=== PATIENT | female | born 1985 | race Caucasian/White ===

== ENCOUNTER 2016-09-05 09:10 | Emergency (ER) | payer OTHER ==
--- OUTSIDE RECORDS SUMMARY | 2016-09-05 10:06 | XMS REPORT | Continuity of Care Document ---
:1985 Author Organization [facility] ([facility]) Address [address] [place] [address] Phone [phone] Care Team Providers Name Role Phone Florina Garvin Primary Care Provider [phone] Source Comments This disclosure is being made pursuant to the Care Everywhere program, applicable federal and state laws, and may not contain all informaitonavailable regarding this patient.[facility] ([facility]) Active Allergies and Adverse Reactions Allergen Noted Date Severity Reactions Comments Trazodone Cardiac Arrhythmia Current Medications Prescription Sig. Disp. Refills Start End Date Status Date MEDROXYPROGESTERONE ACET inject Active (DEPO-PROVERA IM) intramuscularly every 3 months. venlafaxine 150 mg XR Take 2 tablets (300 60 tablet 2 Active tablet mg total) by mouth 6 daily. LORazepam 1 mg tablet Take 0.5 tablets 15 tablet 2 Active (0.5 mg total) by 6 mouth at bedtime as needed. Active Problems Problem Noted Date History of pervasive developmental disorder 05/26/2015 Contact dermatitis 09/22/2011 Anxiety disorder 01/13/2009 Depressive illness 01/13/2009 Other specified pervasive developmental disorders, current or active state Resolved Problems Problem Noted Date Resolved Date Vaginitis 09/22/2011 12/21/2013 Social History Tobacco Use Types Packs/Day Years Used Date Never Smoker Smokeless Tobacco: Never Used Last Filed Vital Signs Vital Sign Reading Time Taken Blood Pressure 136/90 10/31/2015 9:56 AM CDT Pulse 108 10/31/2015 9:56 AM CDT Temperature 36.4 C (97.5 F) 10/31/2015 9:56 AM CDT Respiratory Rate 16 11/06/2007 10:02 PM CDT Height 1.62 m (5' 3.78") 05/01/2015 4:00 PM CDT Weight 75.8 kg (167 lb 1.7 oz) 10/31/2015 9:56 AM CDT Body Mass Index 28.88 10/31/2015 9:56 AM CDT Oxygen Saturation - - Plan of Care Health Maintenance Due Date Last Done Comments Hepatitis B Vaccine (1 of 3 - Primary Series) 1985 Tdap Vaccine 12/30/1995 Lipid Disorder Screening 2002 MMR Vaccine 2002 Td Vaccine 2002 Varicella Vaccine (1 of 2 - Adult - No Evidence of 2002 Immunity) Cervical Cancer Screening 2014 Influenza Vaccine: Seasonal (#1) 02/23/2016 Results from Last 3 Months Not on file
--- NOTE | 2016-09-05 10:18 | ERNOTE ---
Medical Problem HPI - Narrative Date of Service: 09/05/16 - General Chief Complaint: Foreign Body Time Seen by Provider: 09/05/16 09:38 Source: patient, family - Immun/Allergies/Home Medications Immunizations: IMMUNIZATION HX Immunizations Up to Date Yes History of Influenza Vaccine No Hx Pneumococcal Vaccination No - History of Present History Narrative: Patient presents to the ED after a needle broke off in her right hip. Her mother gives her prn shots of Ativan at home for agitation. Today when she gave the shot the needle broke off in the subcutaneous tissues of the right hip/ buttock. No fever. No other injuries. SHe is doing much better after the ativan shot. No other complaints. Mother only brought her in because of the needle problem. 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 Modifying Factors - (Improves): Present: other - nothing Modifying Factors - (Worsens): Present: other - nothing Review of Systems - Review of Systems Constitutional: Absent: fever Gastrointestinal/Abdominal: Absent: abdominal pain Neurological: Absent: weakness - Patient's Past Medical History Patient History - Medical: Anxiety, Bipolar Patient History - Cardiac/Respiratory: No pertinent hx Patient History - Cancer: No Hx of Cancer Patient History - Surgical Procedures: No surgical history Patient History - Other: None - Social History Living Situations: home Abuse History: No History of abuse Psych History: Hx of Anxiety, Hx of Bipolar Disorder, Current tx/ever been on anti-depressants or anti-anxiety meds Smoking Status: Never smoker Alcohol Use: none Drug Use: none - Immunizations Immunizations Up to Date: Yes Hx Pneumococcal Vaccination: No History of Influenza Vaccine: No Physical Exam - Physical Exam General Appearance: Present: alert, no apparent distress Eye Exam: Normal inspection: bilateral Neck: Present: normal inspection Respiratory: Present: no respiratory distress, normal breath sounds, lungs clear Cardiovascular/Chest: Present: regular rate, rhythm Gastrointestinal/Abdominal: Present: normal bowel sounds, nontender, soft Back Exam: Present: normal inspection Extremity Exam: Present: other - the area of the injection is noted, no clear FB felt. No infection, this is right upper buttock/lateral hip area. Neurological Exam: Absent: motor weakness ED Progress - Vital Signs Patient's Vital Signs:: I have reviewed the patient's vital signs. Vital Signs: Vital Signs 09/05/16 09:17 Temperature 36.1 C L Pulse Rate 84 Respiratory 16 Rate Blood Pressure 122/89 O2 Sat by Pulse 98 Oximetry - X-Ray X-Ray #1 X-Ray: pelvis Interpretation: Interp. by me X-ray Comments: Pending official radiology review. No clear FB seen. - Progress/Reassessment Chief Complaint: Foreign Body Progress Note-Subjective: 09/05/16 10:[address] Louis via phone. Patient should follow-up in the surgery office, call tuesday for an appointment. Departure - Departure Clinical Impression: Exposure to needle Disposition: Home self-care Condition: Stable Additional Instructions: Call Dr Cedeno's office tomorrow morning for an appointment. Keep a close eye on the area. Return here for fever, swelling, redness, drainage of if her condition worsens or changes in any way. Referrals: Florina Garvin MD [Primary Care Provider] -
[2016-09-05 10:39] VITALS: BP 115/85
== END 2016-09-05 11:15 | disposition home or self-care (01) ==
LOC: ER 09:10
DX: M79.5 Residual foreign body in soft tissue (principal); W45.8XXA Other foreign body or object entering through skin, initial encounter

== ENCOUNTER 2016-10-06 06:57 | Day surgery (SDC) | payer OTHER ==
[~2016-10-06 06:57] MED LIST: RINGERS SOLUTION,LACTATED 1,000 ML IV PRN
--- OUTSIDE RECORDS SUMMARY | 2016-10-06 07:02 | XMS REPORT | Continuity of Care Document ---
:1985 Author Organization [facility] ([facility]) Address [address] [place] [address] Phone [phone] Care Team Providers Name Role Phone Florina Garvin Primary Care Provider [phone] Source Comments This disclosure is being made pursuant to the Care Everywhere program, applicable federal and state laws, and may not contain all informaitonavailable regarding this patient.[facility] ([facility]) Active Allergies and Adverse Reactions [...]
[2016-10-06] MEDS ORDERED: HYDROmorphone HCL 2 MG/ML VIAL IV PRN (07:31)
[2016-10-06] MEDS ORDERED: NALOXONE HCL 0.4 MG/ML VIAL IV PRN (07:31)
[2016-10-06] MEDS ORDERED: ONDANSETRON HCL/PF 2 MG/ML VIAL IV PRN (07:31)
[2016-10-06] MEDS ORDERED: diphenhydrAMINE HCL 50 MG/ML VIAL IV PRN (07:31)
[2016-10-06] MEDS ORDERED: PROMETHAZINE HCL 12.5 MG in DEXTROSE 5 % IN WATER 50 ML IV PRN ×2 (07:31)
[2016-10-06] MEDS ORDERED: RINGERS SOLUTION,LACTATED 1,000 ML IV ONE ×2 (07:34→08:25)
[2016-10-06] MEDS ORDERED: LIDOCAINE HCL/EPINEPHRINE 50 ML VIAL IJ ONE ×2 (08:05)
--- NOTE | 2016-10-06 08:53 | OR ---
Operative Report - Dictated Report Narrative: INDICATION: 30 year old female desires permanent sterilization PREOPERATIVE DIAGNOSIS: Desires permanent sterilization POSTOPERATIVE DIAGNOSIS: Same OPERATION: Laparoscopic bilateral tubal fulguration SURGEON: Young Casanova D.O. [employer] LAPPER TENDER: Gail ANESTHESIA: General ESTIMATED BLOOD LOSS: Minimal FLUID REPLACEMENT: 800 mL URINE OUTPUT: Not measured FINDINGS: Normal uterus, tubes, and ovaries. Normal-appearing retrocecal appendix adherent to the back of the colon SPECIMEN(S): None DRAINS: none TECHNIQUE: The patient was taken to the operating room and placed in dorsal lithotomy position after adequate general anesthesia was obtained. The anterior lip of the cervix was grasped with a long Allis clamp and a Valchev manipulator was inserted into the cervical canal and attached to the Allis clamp as a means to manipulate the uterus. Bladder was drained prior to patient entering the OR. Gloves were changed and attention was turned to the abdomen. A 1% lidocaine epinephrine solution was injected into the skin and through the underlying layers of the abdomen at the umbilicus. A scalpel was used to score the skin and a 12 mm non-bladed trocar was inserted via direct technique under direct visualization. Pneumoperitoneum was created with CO2 gas. An additional 5 mm non-bladed trocar was placed suprapubically in a similar fashion. Survey of the abdominal cavity revealed findings as noted above. The right fallopian tube was identified and followed out to the fimbriated end. Approximately 3 cm of the fallopian tube was coagulated with the Kleppinger's approximately 2 cm from the cornual region. The exact same was done on the patient's left side. The CO2 gas was removed from the abdominal cavity. The trocar was removed under direct visualization. The fascia was closed with a single interrupted 0 Vicryl suture. The skin was closed with 4-0 Monocryl. Exophin adhesive dressing was placed over both incisions. Instruments were removed from the cervix and vagina. Sponge, lap, instrument, and needle count were correct x 2. DISPOSITION: The patient was awakened and transferred to post anesthesia care unit in good condition.
[2016-10-06] MEDS ORDERED: MORPHINE SULFATE 4 MG/ML SYRG IV ONE (09:00)
[2016-10-06] MEDS ORDERED: oxyCODONE HCL/ACETAMINOPHEN 1 TAB TABLET PO PRN (09:41)
[2016-10-06] MEDS ORDERED: MORPHINE SULFATE 2 MG/ML DISP.SYRIN IV PRN (09:41)
[2016-10-06] MEDS ORDERED: IBUPROFEN 800 MG TABLET PO PRN (09:42)
[2016-10-06 10:38] VITALS: BP 109/88
== END 2016-10-06 06:58 | disposition home or self-care (01) ==
LOC: AMB 06:57
PROVIDERS: ATTEND Obstetrics & Gynecology
PROC: 0U574ZZ Destruction of Bilateral Fallopian Tubes, Percutaneous Endoscopic Approach (ICD-10-PCS; principal; 2016-10-06 08:00)
DX: Z30.2 Encounter for sterilization (principal); F31.81 Bipolar II disorder; F41.9 Anxiety disorder, unspecified; F90.9 Attention-deficit hyperactivity disorder, unspecified type; Z68.34 Body mass index [BMI] 34.0-34.9, adult